=== PATIENT | male | born 1950 | race Caucasian/White ===

== ENCOUNTER 2023-11-21 07:45 | Outpatient (CLI) | payer MEDICARE | END 2023-11-21 07:46 | disposition home or self-care (01) | LOC: CSHCT 07:45 | PROVIDERS: ATTEND Internal Medicine | DX: N28.89 Other specified disorders of kidney and ureter (principal) | CPT/HCPCS: 74170; 82565 ==

== ENCOUNTER 2025-03-30 10:35 | Emergency (ER) | payer MEDICARE ==
[2025-03-30 11:19] LABS: Platelet Count 122 10x3/uL (150-450)
[2025-03-30 11:20] LABS: #Basophils Less than 0.03 10x3/uL (0.0-0.2); #Eosinophils 0.06 10x3/uL (0.0-0.5); #Monocytes 0.39 10x3/uL (0.0-1.1); #Neutrophils 2.48 10x3/uL (1.5-8.4); %Basophils 0.4 % (0.0-2.0); %Eosinophils 1.2 % (0.0-6.0); %Lymphocytes 39.2 % (18.0-47.0); %Monocytes 8.0 % (0.0-10.0); %Neutrophils 51.0 % (40.0-75.0); Hematocrit 45.9 % (38.8-50.0); Hemoglobin 15.6 g/dL (13.5-17.5); Mean Corpuscular Hemoglobin 29.8 pg (27.0-33.0); Mean Corpuscular Volume 87.8 fL (81.2-95.1); Red Blood Cell (RBC) Count 5.23 10x6/uL (4.32-5.72); White Blood Cell (WBC) Count 4.87 10x3/uL (3.5-10.5)
[2025-03-30 11:36] LABS: ALT (SGPT) 30 U/L (Less than 45); AST (SGOT) 30 U/L (11-34); Albumin 4.2 g/dL (3.1-4.5); Alkaline Phosphatase 98 U/L (40-110); Anion Gap 14 mmol/L (10-20); BUN (Urea Nitrogen) 19 mg/dL (8.4-25.7); Bilirubin, Total 0.6 mg/dL (0.3-1.2); Calc. Creatinine Clearance 0 mL/min (70-130); Calcium 10.3 mg/dL (7.8-10.44); Carbon Dioxide 23 mmol/L (23-31); Chloride 108 mmol/L (98-107); Globulin 3.0 g/dL (2.4-3.5); Glucose 104 mg/dL (83-110); Lipase 7 U/L (8-78); Potassium 4.5 mmol/L (3.5-5.1); Sodium 140 mmol/L (136-145)
[2025-03-30] MEDS ORDERED: Pantoprazole 40 MG VIAL ONE (11:44)
[2025-03-30] MEDS ORDERED: Famotidine/PF 20 mg/2ml Vial ONE (11:45)
[2025-03-30 12:02] LABS: Glucose, Urine (Dipstick) Normal (Negative); Leukocyte Negative (Negative); Protein, Urine (Dipstick) 15 mg/dl (Neg-Trace); Specific Gravity, Urine 1.020 (1.005-1.030)
[2025-03-30 12:09] LABS: Troponin I Less than 0.010 ng/mL (< 0.028)
[2025-03-30 12:22] LABS: Bacteria/HPF 1+ HPF (None Seen); CAUTI Indications for Culture Pelvic or flank pain; Mucous/LPF 1+ LPF (<2+)
[2025-03-30 12:23] LABS: Urine Culture Reflex No No
== END 2025-03-30 13:09 | disposition home or self-care (01) ==
LOC: CSHERS 10:35
DX: R10.10 Upper abdominal pain, unspecified (principal); R31.29 Other microscopic hematuria; N28.89 Other specified disorders of kidney and ureter; E78.00 Pure hypercholesterolemia, unspecified; I10 Essential (primary) hypertension; I48.91 Unspecified atrial fibrillation; Z55.6 Problems related to health literacy
CPT/HCPCS: 74177; 80053; 81001; 83690; 84484; 85025; 93005; J1308; J2470; 96374; 96375